=== PATIENT | female | born 1985 | race American Indian/Alaskan Native ===

== ENCOUNTER 2018-01-24 18:40 | Emergency (ER) | payer OTHER ==
[2018-01-24 19:01] VITALS: BMI 21.2
[2018-01-24 19:24] VITALS: BP 113/77; PULSE 70; RESP 18; TEMP 98; O2SAT 100
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
== END 2018-01-24 19:42 | disposition home or self-care (01) ==
LOC: C.ER 18:40
DX: T14.8XXA Other injury of unspecified body region, initial encounter (principal); V47.5XXA Car driver injured in collision with fixed or stationary object in traffic accident, initial encounter